=== PATIENT | female | born 1995 | race Asian ===

== ENCOUNTER 2017-03-28 14:02 | Emergency (ER) | payer OTHER ==
[2017-03-28 14:09] VITALS: BMI 24.7
--- NOTE | 2017-03-28 14:12 | PDOC ---
Rapid Medical Evaluation Chief Complaint: Vaginal Bleeding Time Seen by Provider: 03/28/17 14:09 Medical Evaluation: Allergies Allergy/AdvReac Type Severity Reaction Status Date / Time No Known Allergies Allergy Verified 03/28/17 14:06 Vital Signs Temp Pulse Resp BP Pulse Ox 98.8 F 83 18 106/63 99 03/28/17 14:07 03/28/17 14:07 03/28/17 14:07 03/28/17 14:07 03/28/17 14:07 03/28/17 14:24 The patient presents with a chief complaint of: Vaginal bleeding. Reports 17 weeks . Also endorses lower abdominal cramping. I have performed a brief in-person evaluation of this patient; Pertinent physical exam findings: Suprapubic tenderness I have ordered the following: CBC, CMP, PT/INR, Type and Screen, UA, Beta HCG, Transvaginal US The patient will proceed to the ED for further evaluation. Discharge Disposition - Referrals Referrals: Lorna Genao MD [Primary Care Provider] - - Patient Instructions - Post Discharge Activity
[2017-03-28 14:58] LABS: BASO % 0.2 % (0-2.0); EOS % 0.9 % (0-4.5); HEMATOCRIT 34.7 % (32.4-45.2); HEMOGLOBIN 11.5 GM/dL (10.7-15.3); LYMPH % 25.8 % (8-40); MCH 30.1 pg (25.7-33.7); MCHC 33.1 g/dl (32.0-36.0); MONO % 4.7 % (3.8-10.2); NEUT % 68.4 % (42.8-82.8); PLATELET COUNT 182 K/MM3 (134-434); RBC 3.81 M/mm3 (3.60-5.2); RDW 13.1 % (11.6-15.6); WHITE BLOOD COUNT 9.8 K/mm3 (4.0-10.0)
[2017-03-28 15:00] LABS: URINE APPEARANCE SLCLOUDY; URINE BILIRUBIN NEGATIVE (NEGATIVE); URINE BLOOD 3+ (NEGATIVE); URINE COLOR YELLOW; URINE GLUCOSE (UA) NEGATIVE (NEGATIVE); URINE KETONE NEGATIVE (NEGATIVE); URINE NITRITE NEGATIVE (NEGATIVE); URINE PROTEIN NEGATIVE (NEGATIVE); URINE UROBILINOGEN NEGATIVE mg/dL (0.2-1.0)
[2017-03-28 15:02] LABS: URINE LEUK ESTERASE 1+ (NEGATIVE)
[2017-03-28 15:23] LABS: EPI CELLS FEW /HPF (FEW); URINE MUCUS MODERATE
--- NOTE | 2017-03-28 15:24 | PDOC ---
History of Present Illness - General Chief Complaint: Vaginal Bleeding Stated Complaint: Vaginal Bleeding Time Seen by Provider: 03/28/17 14:09 - History of Present Illness Initial Comments: 03/28/17 16:22 Ms. Rendon is a 22 yo female currently 18 weeks w/ no pmh who presents for evaluation after noticing some blood in her underwear this morning. She reports that it was minimal but that she would like to get checked out. She also complains of a 1 day history of left lower quadrant stomach pain that has changed to include left CVA tenderness today. Per family member accompanying her she has had checkups recently with confirmation of IUP and no concerning findings to date. The patient denies chest pain, shortness of breath, headache and dizziness. Denies fever, chills, nausea, vomit, diarrhea and constipation. Denies dysuria, frequency, urgency and hematuria. Allergies: NKDA Past History - Past Medical History Allergies/Adverse Reactions: Allergies Allergy/AdvReac Type Severity Reaction Status Date / Time No Known Allergies Allergy Verified 03/28/17 14:06 COPD: No - Suicide/Smoking/Psychosocial Hx Smoking History: Never smoked Review of Systems - Review of Systems Comments:: 03/28/17 16:25 GENERAL/CONSTITUTIONAL: No fever or chills. No weakness. HEAD, EYES, EARS, NOSE AND THROAT: No change in vision. No ear pain or discharge. No sore throat. CARDIOVASCULAR: No chest pain or shortness of breath RESPIRATORY: No cough, wheezing, or hemoptysis. GASTROINTESTINAL: +LLQ pain with left lower back pain. No nausea, vomiting, diarrhea or constipation. GENITOURINARY: No dysuria, frequency, or change in urination. MUSCULOSKELETAL: No joint or muscle swelling or pain. No neck or back pain. SKIN: No rash NEUROLOGIC: No headache, vertigo, loss of consciousness, or change in strength/ sensation. ENDOCRINE: No increased thirst. No abnormal weight change HEMATOLOGIC/LYMPHATIC: No anemia, easy bleeding, or history of blood clots. ALLERGIC/IMMUNOLOGIC: No hives or skin allergy. : Minimal blood noted on underwear 1x earlier today. No current blood loss. *Physical Exam - Vital Signs Last Vital Signs Temp Pulse Resp BP Pulse Ox 98.8 F 83 18 106/63 99 03/28/17 14:07 03/28/17 14:07 03/28/17 14:07 03/28/17 14:07 03/28/17 14:07 - Physical Exam Comments: 03/28/17 16:25 GENERAL: Awake, alert, and fully oriented, in no acute distress HEAD: No signs of trauma, normocephalic, atraumatic EYES: PERRLA, EOMI, sclera anicteric, conjunctiva clear ENT: Auricles normal inspection, hearing grossly normal, nares patent, oropharynx clear without exudates. Moist mucosa NECK: Normal ROM, supple, no lymphadenopathy, JVD, or masses LUNGS: No distress, speaks full sentences, clear to auscultation bilaterally HEART: Regular rate and rhythm, normal S1 and S2, no murmurs, rubs or gallops, peripheral pulses normal and equal bilaterally. ABDOMEN: +LLQ pain with left CVA tenderness. Soft, normoactive bowel sounds. No guarding, no rebound. No masses EXTREMITIES: Normal inspection, Normal range of motion, no edema. No clubbing or cyanosis. NEUROLOGICAL: Cranial nerves II through XII grossly intact. Normal speech, normal gait, no focal sensorimotor deficits SKIN: Warm, Dry, normal turgor, no rashes or lesions noted. ED Treatment Course - LABORATORY CBC & Chemistry Diagram: 03/28/17 14:37 03/28/17 14:37 - ADDITIONAL ORDERS Additional order review: Laboratory Results 03/28/17 14:37 Urine Color Yellow Urine Appearance Slcloudy Urine pH 7.0 Ur Specific [place] 1.018 Urine Protein Negative Urine Glucose (UA) Negative Urine Ketones Negative Urine Blood 3+ H Urine Nitrite Negative Urine Bilirubin Negative Urine Urobilinogen Negative Ur Leukocyte Esterase 1+ H 03/28/17 14:37 RBC 3.81 MCV 91.0 MCHC 33.1 RDW 13.1 MPV 10.0 Neutrophils % 68.4 Lymphocytes % 25.8 Monocytes % 4.7 Eosinophils % 0.9 Basophils % 0.2 Medical Decision Making - Medical Decision Making 03/28/17 18:46 Ms. Rendon is a 22 yo female with no pmh who presents w/ LLQ pain, L CVA tenderness, and vaginal spotting as of this morning. Reported she was 18 weeks on presentation but was found to be 26 weeks by US. UA positive for UTI, discussed patient with Dr. Manning (covering for [facility] Lorna Genao). Dr. Bateman is aware of findings in ED of UTI with suspected pyelonephritis and will evaluate / treat patient as needed. Would like patient sent directly with no intervention. Will comply. *DC/Admit/Observation/Transfer Diagnosis at time of Disposition: UTI (urinary tract infection) Qualifiers: Urinary tract infection type: site unspecified Hematuria presence: with hematuria Qualified Code(s): N39.0 - Urinary tract infection, site not specified ; R31.9 - Hematuria, unspecified; R31.9 - Hematuria, unspecified - Discharge Dispostion Disposition: HOME - Referrals Referrals: Lorna Genao MD [Primary Care Provider] - - Patient Instructions Printed Discharge Instructions: DI for Urinary Tract Infection (UTI) Additional Instructions: Go directly to [facility] evaluation. You have a urinary tract infection with suspected kidney infection and require further evaluation. - Post Discharge Activity
[2017-03-28 15:26] LABS: ALBUMIN 2.7 g/dl (3.4-5.0); ANION GAP 10 (8-16); BILIRUBIN,TOTAL 0.4 mg/dL (0.2-1.0); BLOOD UREA NITROGEN 5 mg/dL (7-18); CALCIUM 8.2 mg/dL (8.5-10.1); CHLORIDE 109 mmol/L (98-107); CO2 20 mmol/L (21-32); CREATININE 0.4 mg/dL (0.55-1.02); GLUCOSE,RANDOM 86 mg/dL (74-106); POTASSIUM 3.8 mmol/L (3.5-5.1); SGOT/AST 8 U/L (15-37); SGPT/ALT 14 U/L (12-78); SODIUM 139 mmol/L (136-145); TOT PROT 6.3 g/dl (6.4-8.2)
[2017-03-28 15:42] LABS: ALK PHOS 134 U/L (45-117)
--- NOTE | 2017-03-28 18:20 | PDOC ---
Attending Attestation - Resident Resident Name: Ruiz Willett - ED Attending Attestation I have performed the following: I have examined & evaluated the patient, The case was reviewed & discussed with the resident, I agree w/resident's findings & plan, Exceptions are as noted - HPI HPI: 03/28/17 19:45 Patient is a 22 year old female, reports she is 17 weeks , , who presents to the ED with complaints of 1 episode vaginal spotting that occurred this morning. She reports another episode of spotting after her ultrasound in the ED. Patient reports experiencing intermittent left flank pain and left sided abdominal pain this afternoon, as well as urinary discomfort. Denies constipation. Denies chest pain, SOB. Denies fevers, chills. Denies contact with sick individuals, out of state traveling. Denies any other symptoms. Pt has seen her OB for this and has a f/u appt on 04/05/17 Allergies: None Social history: Lives with mother. No smoking. No alcohol. No illicit drugs. Surgical history: None OB: Dr. Lorna Genao. - Physicial Exam PE: 03/28/17 19:45 GENERAL: Awake, alert, and fully oriented, in no acute distress HEAD: No signs of trauma EYES: PERRLA, EOMI, sclera anicteric, conjunctiva clear ENT: Auricles normal inspection, hearing grossly normal, nares patent, oropharynx clear without exudates. Moist mucosa NECK: Normal ROM, supple, no lymphadenopathy, JVD, or masses LUNGS: Breath sounds equal, clear to auscultation bilaterally. No wheezes, and no crackles HEART: Regular rate and rhythm, normal S1 and S2, no murmurs, rubs or gallops ABDOMEN: Soft, nontender, normoactive bowel sounds. No guarding, no rebound. No masses. +L sided CVAT BUTCHER'S ASSISTANT: Gravid uterus, located 6cm above umbulicus. No blood in vaginal vault. Os closed. No midline or adnexal ttp EXTREMITIES: Normal range of motion, no edema. No clubbing or cyanosis. No cords, erythema, or tenderness NEUROLOGICAL: Normal speech, cranial nerves intact, negative pronator drift, 5/ 5 strength in all 4 extremities, normal sensation to light touch in all 4 extremities, normal cerebellar exam, normal gait, normal reflexes and tone SKIN: Warm, Dry, normal turgor, no rashes or lesions noted. - Medical Decision Making 03/28/17 18:18 22-year-old female currently 18 weeks resents with 2 episodes of vaginal spotting as well as left flank and left lower quadrant pain that are resolved. Patient also reports discomfort with urination. Vitals are unremarkable. Exam with no CVA tenderness, no abdominal tenderness. Presentation concerning for placenta previa versus cystitis versus threatened . WIll obtain labs, UA, and US and reassess 03/28/17 19:48 UA with possible UTI, given CVA tenderness the patient may have pyelonephritis. Ultrasound consistent with exam, with at [address] Oneida Genao, the patient's tour bus driver/guide however, was referred to Dr. De La Cruz who is a family practice physician in her office. I discussed the case with him , and he recommended that we consult with the obstetricians here. Dr. Carlos called up to labor and delivery where Dr. Manning is covering for Dr. Genao. Dr. Manning recommended that we send the patient up for monitoring and also for management of her pyelonephritis. All results explained to patient and her primary language of Hebrew. Patient has been sent up to labor and delivery for further management and disposition.
[2017-03-28] MEDS ORDERED: ceFAZolin SODIUM 1 GM VIAL ONE (19:43)
[2017-03-28] MEDS ORDERED: ceFAZolin 2 GRAM PREMIX BAG IVPB ONE (19:45)
[2017-03-28] MEDS ORDERED: DEXTROSE 5%-LACTATED RINGERS 1,000 ML IV SCH (19:45)
[2017-03-28 20:43] VITALS: BP 106/58; PULSE 67; TEMP 97.6
== END 2017-03-28 21:00 | disposition home or self-care (01) ==
LOC: JER 14:02
DX: O26.892 Other specified pregnancy related conditions, second trimester (principal); O23.32 Infections of other parts of urinary tract in pregnancy, second trimester; Z3A.26 26 weeks gestation of pregnancy
CPT/HCPCS: 36415; 76801-TC; 80053; 81003; 81015; 84702; 85025; 86850; 86900; 86901; 87086; 96374; 99282-25

== ENCOUNTER 2017-05-04 14:50 | Inpatient (IN) | payer OTHER ==
[2017-05-04] MEDS ORDERED: CITRIC ACID/SODIUM CITRATE 30 ML UNIT-DOSE CUP PO ONE (15:15)
[2017-05-04] MEDS ORDERED: ELECTROLYTE-148 SOLN 1,000 ML IV SCH (15:15)
[2017-05-04 15:20] VITALS: BMI 25.7
[2017-05-04 16:02] LABS: BASO % 0.1 % (0-2.0); HEMOGLOBIN 11.4 GM/dL (10.7-15.3); MONO % 5.2 % (3.8-10.2); RDW 12.7 % (11.6-15.6)
[2017-05-04 16:05] LABS: EOS % 0.6 % (0-4.5); HEMATOCRIT 33.6 % (32.4-45.2); LYMPH % 23.6 % (8-40); MCH 30.5 pg (25.7-33.7); MEAN CELL VOLUME 89.7 fl (80-96); MEAN PLT VOLUME 10.3 fl (7.5-11.1); NEUT % 70.5 % (42.8-82.8); PLATELET COUNT 203 K/MM3 (134-434); RBC 3.74 M/mm3 (3.60-5.2); WHITE BLOOD COUNT 9.2 K/mm3 (4.0-10.0)
[2017-05-04] MEDS ORDERED: OXYTOCIN 20 UNITS in 0.9% NS 20 UNIT/1,000 ML INFUS.BAG IV ONE ×2 (16:12→16:15)
[2017-05-04] MEDS ORDERED: morphine SULFATE/Preservative Free 0.5 MG/ML (1cc Syringe) ONE (16:17)
[2017-05-04 16:28] LABS: INR 1.01 (0.82-1.09); PROTHROMBIN TIME (PATIENT) 11.4 SEC (9.98-11.88)
[2017-05-04] MEDS ORDERED: PHENYLEPHRINE HCL 10 MG/1 ML SINGLE DOSE VIAL ONE (16:28)
[2017-05-04] MEDS ORDERED: ceFAZolin SODIUM 1 GM VIAL ONE (16:28)
[2017-05-04 16:31] LABS: ACTIVATED PTT 27.4 SECONDS (26.9-34.4)
--- NOTE | 2017-05-04 16:38 | HP ---
Past Medical History - Primary Care Physician PCP:: Trent Bustillo - Admission Chief Complaint: 34.5 weeks. rom, footling breech, labor History of Present Illness: 22 yo f edc by sono 06/10/17 with c/o of leaking fluid from vagina since 8 am today , with low abdominal pain and cramps, clear fluid, nitazine positive, fhr cat 1 , hx of iugr with oligo, cx 1 ft, footling breech. mr History Source: Patient Limitations to Obtaining History: Language Barrier - Past Medical History ...: 1 ...Para: 0 ...LMP: 09/03/16 ... Weeks Gestation by Dates: 34.5 ...EDC by Dates: 06/10/17 ...EDC by Sono: 06/10/17 - Past Surgical History Hx Myomectomy: No Hx Transabdominal Cerclage: No - Smoking History Smoking history: Never smoked - Alcohol/Substance Use Hx Alcohol Use: No - Social History History of Recent Travel: No Home Medications - Allergies Allergies/Adverse Reactions: Allergies Allergy/AdvReac Type Severity Reaction Status Date / Time No Known Allergies Allergy Verified 04/25/17 15:49 - Home Medications Home Medications: Ambulatory Orders Pnv No.95/Ferrous Fum/Folic AC [ Vitamin Tablet] 1 each PO DAILY Review of Systems - Review of Systems Constitutional: reports: No Symptoms Eyes: reports: No Symptoms HENT: reports: No Symptoms Neck: reports: No Symptoms Cardiovascular: reports: No Symptoms Respiratory: reports: No Symptoms Gastrointestinal: reports: No Symptoms Genitourinary: reports: No Symptoms Breasts: reports: No Symptoms Reported Musculoskeletal: reports: No Symptoms Integumentary: reports: No Symptoms Neurological: reports: No Symptoms Endocrine: reports: No Symptoms Hematology/Lymphatic: reports: No Symptoms Physical Exam - Maternity Vital Signs: Vital Signs Temperature 97.7 F 05/04/17 15:11 Pulse Rate 86 05/04/17 15:11 Respiratory Rate 20 05/04/17 15:11 Blood Pressure 124/76 05/04/17 15:11 O2 Sat by Pulse Oximetry (%) Constitutional: Yes: Well Nourished, No Distress, Calm Eyes: Yes: WNL, Conjunctiva Clear, EOM Intact HENT: Yes: WNL, Atraumatic, Normocephalic Neck: Yes: WNL, Supple, Trachea Midline Cardiovascular: Yes: WNL, Regular Rate and Rhythm Breast(s): Yes: WNL - Abdominal Exam/OB Number of Fetuses: Single Presentation: Breech Contractions: Yes Regularity: Irregular Intensity: Moderate Monitor Mode: External Heart Rate Location: [facility] [[email or web address]] Category: I Accelerations: Uniform Decelerations: None - Vaginal Exam/OB Vaginal Bleediing: No Speculum Exam: Yes Dilatation (cm): 1 cm Effacement (%): 70 Amniotic Membrane Status: Ruptured Nitrazine Test: Positive Amniotic Fluid: Yes: Clear Station: -3 - Physical Exam Musculoskeletal: Yes: WNL Extremities: Yes: WNL Edema: Yes Edema: LLE: Trace, RLE: Trace Deep Tendon Reflex Grade: Normal +2 ...Motor Strength: WNL Psychiatric: Yes: WNL - Labs Lab Results: CBC, BMP 05/04/17 15:30 Problem List - Problems (1) 34 weeks gestation of Code(s): Z3A.34 - 34 WEEKS GESTATION OF (2) membrane rupture Code(s): WOI0533 - (3) Breech presentation with problem Code(s): O32.1XX0 - MATERNAL CARE FOR BREECH PRESENTATION, UNSP Qualifiers: Fetus number: single or unspecified fetus Qualified Code(s): O32.1XX0 - Maternal care for breech presentation, not applicable or unspecified Assessment/Plan admit for c/s , rba explained
[2017-05-04 16:53] LABS: ANION GAP 11 (8-16); BLOOD UREA NITROGEN 5 mg/dL (7-18); CALCIUM 7.7 mg/dL (8.5-10.1); CHLORIDE 107 mmol/L (98-107); CO2 19 mmol/L (21-32); GLUCOSE,RANDOM 72 mg/dL (74-106); SODIUM 137 mmol/L (136-145)
[2017-05-04 16:54] LABS: CREATININE 0.3 mg/dL (0.55-1.02)
[2017-05-04] MEDS ORDERED: KETOROLAC TROMETHAMINE 30 MG/1 ML VIAL ONE (17:03)
[2017-05-04] MEDS ORDERED: ACETAMINOPHEN 325 MG TABLET (FP) PO PRN (17:16)
[2017-05-04] MEDS ORDERED: ONDANSETRON 4 MG/2 ML VIAL IVPUSH PRN (17:16)
[2017-05-04] MEDS ORDERED: BENZOCAINE 28 GM HEMORRHOIDAL OINTMENT PR PRN (17:22)
[2017-05-04] MEDS ORDERED: WITCH HAZEL 50% (TUCKS) 40 PAD/JAR PAD TP PRN (17:22)
[2017-05-04] MEDS ORDERED: diphenhydrAMINE HCL 25 MG CAPSULE (FP) PO PRN (17:22)
[2017-05-04] MEDS ORDERED: METHYLERGONOVINE MALEATE 0.2 MG/1 ML AMP IM PRN (17:22)
[2017-05-04] MEDS ORDERED: IBUPROFEN 800 MG/8 ML IJ IVPB PRN (17:22)
[2017-05-04] MEDS ORDERED: IBUPROFEN 600 MG TABLET (FP) PO PRN (17:22)
[2017-05-04] MEDS ORDERED: BENZOCAINE 20% 57 GM BOTTLE TP PRN (17:22)
[2017-05-04] MEDS ORDERED: OXYTOCIN 20 UNITS in 0.9% NS 20 UNIT/1,000 ML INFUS.BAG IV SCH (17:30)
[2017-05-04] MEDS ORDERED: DEXTROSE 5%-LACTATED RINGERS 1,000 ML IV SCH (17:30)
[2017-05-04 17:44] LABS: VENOUS PC02 49.9 mmHg (38-52); VENOUS PH 7.32 (7.32-7.42)
[2017-05-04 17:48] LABS: ARTERIAL BLOOD GAS BASE EXCESS -1.6 meq/l (-2-2); ARTERIAL BLOOD GAS PCO2 38.9 mmHg (35-45); ARTERIAL BLOOD GAS pH 7.38 (7.35-7.45)
[2017-05-04 17:51] LABS: ARTERIAL BLD GAS O2 SATURATION 50.4 % (90-98.9); ARTERIAL BLOOD GAS PO2 22.2 mmHg (80-100)
[2017-05-04 17:52] LABS: VENOUS PO2 15.1 mmHg (28-48)
[2017-05-04] MEDS ORDERED: CEFAZOLIN 1 GM PUSH 1 GM/10 ML DISP.SYRIN IVPUSH SCH (18:00)
[2017-05-04] MEDS ORDERED: BUPIVACAINE HCL/PF 0.5% (5MG/ML) 10 ML VIAL ONE (19:21)
[2017-05-05] MEDS: CEFAZOLIN 1 GM PUSH 1 GM/10 ML DISP.SYRIN IVPUSH SCH ×2 (01:47→09:44)
--- NOTE | 2017-05-05 07:47 | PN ---
Progress Note (short form) - Note Progress Note: pod 1 doing well, no c/o , CBC, BMP 05/04/17 15:30 Last Vital Signs Temp Pulse Resp BP Pulse Ox 98.2 F 87 18 112/52 05/05/17 06:00 05/05/17 06:00 05/05/17 06:00 05/05/17 06:00 abdomen soft, no distension, no cva , incision dry, clean no calf tenderness no excess vaginal bleeding pod 1 afebrile plan ambulate , advance diet Problem List - Problems (1) 34 weeks gestation of Code(s): Z3A.34 - 34 WEEKS GESTATION OF (2) membrane rupture Code(s): VSP1473 - (3) Breech presentation with problem Code(s): O32.1XX0 - MATERNAL CARE FOR BREECH PRESENTATION, UNSP Qualifiers: Fetus number: single or unspecified fetus Qualified Code(s): O32.1XX0 - Maternal care for breech presentation, not applicable or unspecified
[2017-05-05 07:50] LABS: BASO % 0.1 % (0-2.0); EOS % 0.4 % (0-4.5); HEMATOCRIT 31.6 % (32.4-45.2); HEMOGLOBIN 10.5 GM/dL (10.7-15.3); LYMPH % 20.9 % (8-40); MCH 29.8 pg (25.7-33.7); MCHC 33.1 g/dl (32.0-36.0); MEAN CELL VOLUME 90.1 fl (80-96); MEAN PLT VOLUME 10.1 fl (7.5-11.1); NEUT % 73.6 % (42.8-82.8); PLATELET COUNT 168 K/MM3 (134-434); RBC 3.51 M/mm3 (3.60-5.2); RDW 12.9 % (11.6-15.6); WHITE BLOOD COUNT 12.3 K/mm3 (4.0-10.0)
[2017-05-05] MEDS: ENOXAPARIN NA (PORCINE) 40 MG/0.4 ML DISP.SYRIN SQ SCH (09:43)
--- NOTE | 2017-05-05 09:46 | OP ---
DATE OF OPERATION: 05/04/2017 PREOPERATIVE DIAGNOSIS: , 34.5 weeks gestation, ruptured membrane, footling breech, early labor. POSTOPERATIVE DIAGNOSIS: , 34.5 weeks gestation, ruptured membrane, footling breech, early labor. PROCEDURE: Primary low segment transverse section. SURGEON: Gab Bustillo MD SUPERVISOR MATTRESS AND BOXSPRINGS: RODERICK Frey ANESTHESIA: Spinal. ANESTHESIOLOGIST: ESTIMATED BLOOD LOSS: 500 mL. FINDINGS: A live baby boy, double footling breech, 9 and 9. OPERATION: The patient was taken to the operating room. Under adequate spinal anesthesia, abdomen and perineum were prepped and draped. Pfannenstiel abdominal skin incision was made. Abdominal wall was cut layer by layer until the peritoneum was exposed and incised. Upon entering the abdominal cavity, lower uterine segment was identified, and uterovesical fold of peritoneum was established, bladder was pushed down. Then, with the lower blade of the Joslyn retractor in the pelvis, a low transverse uterine incision was made. Incision extended laterally with the bandaged scissors. Amniotic sac was entered. Minimal clear fluid was seen. Baby was in double footling breech, was delivered via breech without any difficulty. Placenta was delivered manually. Uterine cavity was cleaned of all remaining tissue. Uterine incision was closed using 2 layers, 1st layer with 0 Biosyn continuous suture, the 2nd layer with 0 Biosyn imbricating the 1st layer. Bladder flap was closed with 0 Biosyn continuous suture. Both tubes and ovaries were checked, were normal. No active bleeding was seen. All the lap pad, sponge, and instrument counts were correct. Then, peritoneum was closed with 0 Biosyn continuous suture, muscles were brought together with interrupted sutures of 0 Biosyn, fascia was closed with 0 Biosyn continuous suture, subcutaneous fat with interrupted suture of 0 Biosyn, and the skin was closed with merrill. The patient tolerated the procedure well, left the OR in good condition. GAB BUSTILLO M.D. [id number]
[2017-05-05] MEDS: oxyCODONE HCL 5 MG TABLET PO PRN ×2 (11:21→19:43)
[2017-05-05] MEDS: IBUPROFEN 600 MG TABLET (FP) PO PRN ×2 (11:22→19:43)
[2017-05-05] MEDS: SIMETHICONE 80 MG TAB.CHEW (FP) PO PRN ×2 (11:23→19:43)
--- NOTE | 2017-05-05 15:34 | PN ---
Progress Note (short form) - Note Progress Note: Anesthesia/Pain Pt seen and examined S:Alert and awake comfortable O: Vital Signs Temperature 98.4 F 05/05/17 14:00 Pulse Rate 77 05/05/17 14:00 Respiratory Rate 20 05/05/17 14:00 Blood Pressure 95/59 05/05/17 14:00 O2 Sat by Pulse Oximetry (%) CBC, BMP 05/05/17 06:12 05/04/17 15:30 A/P: Current Active Problems 34 weeks gestation of (Acute) Breech presentation with problem (Acute) membrane rupture (Acute) IUGR (intrauterine growth restriction) (Acute) s/p c section Doing well post op Continue current care Sky Galan MD
[2017-05-05] MEDS ORDERED: BISACODYL 10 MG SUPP.RECT RC PRN (17:22)
[2017-05-06] MEDS: oxyCODONE HCL 5 MG TABLET PO PRN ×4 (03:52→17:57)
[2017-05-06] MEDS: IBUPROFEN 600 MG TABLET (FP) PO PRN ×4 (03:52→17:58)
[2017-05-06] MEDS: SIMETHICONE 80 MG TAB.CHEW (FP) PO PRN ×4 (03:52→17:59)
[2017-05-06 06:08] LABS: HBsAG SCREEN Negative (Negative)
--- NOTE | 2017-05-06 07:30 | PN ---
Post Progress Note - Subjective Subjective: 22 yo Para 1 status post primary , seen and evaluated. She c/o incision pain. Post Day: 2 Type of Delivery: Primary C/S Vital Signs: Vital Signs Temperature 98.7 F 05/05/17 21:00 Pulse Rate 96 H 05/05/17 21:00 Respiratory Rate 20 05/05/17 21:00 Blood Pressure 122/74 05/05/17 21:00 O2 Sat by Pulse Oximetry (%) Breast Exam: Yes: Soft Uterus: Yes: Fundus Firm Incision: Yes: Dressing dry and intact Abdomen/GI: Yes: Abdomen soft, Tolerating PO Lochia: Yes: Rubra Lochia, amount: Small Extremities: Yes: Calves non-tender Perineum: Yes: Intact Activity: Ambulating - Labs Labs: CBC WBC 12.3 K/mm3 (4.0-10.0) H D 05/05/17 06:12 RBC 3.51 M/mm3 (3.60-5.2) L 05/05/17 06:12 Hgb 10.5 GM/dL (10.7-15.3) L 05/05/17 06:12 Hct 31.6 % (32.4-45.2) L 05/05/17 06:12 MCV 90.1 fl (80-96) 05/05/17 06:12 MCH 29.8 pg (25.7-33.7) 05/05/17 06:12 MCHC 33.1 g/dl (32.0-36.0) 05/05/17 06:12 RDW 12.9 % (11.6-15.6) 05/05/17 06:12 Plt Count 168 K/MM3 (134-434) 05/05/17 06:12 MPV 10.1 fl (7.5-11.1) 05/05/17 06:12 Neutrophils % 73.6 % (42.8-82.8) 05/05/17 06:12 Lymphocytes % 20.9 % (8-40) 05/05/17 06:12 Monocytes % 5.0 % (3.8-10.2) 05/05/17 06:12 Eosinophils % 0.4 % (0-4.5) 05/05/17 06:12 Basophils % 0.1 % (0-2.0) 05/05/17 06:12 Problem List - Problems (1) Status post primary low transverse section Code(s): Z98.891 - HISTORY OF UTERINE SCAR FROM PREVIOUS SURGERY Assessment/Plan Status post primary Ambulation Analgesia as needed Continue routine post op care
[2017-05-06] MEDS ORDERED: DIPHTH,PERTUSS(ACELL),TET 0.5 ML DISP.SYRIN IM ONE (10:00)
[2017-05-06] MEDS: ENOXAPARIN NA (PORCINE) 40 MG/0.4 ML DISP.SYRIN SQ SCH (10:36)
[2017-05-06] MEDS ORDERED: SENNOSIDES/DOCUSATE COMBO (SENNA PLUS) TABLET (UD) PO PRN (22:00)
[2017-05-07] MEDS: IBUPROFEN 600 MG TABLET (FP) PO PRN ×4 (00:02→15:17)
[2017-05-07] MEDS: oxyCODONE HCL 5 MG TABLET PO PRN ×2 (06:37→09:52)
[2017-05-07 08:51] VITALS: BP 127/76; PULSE 80; TEMP 98.7
[2017-05-07 09:04] LABS: BASO % 0.1 % (0-2.0); HEMATOCRIT 30.5 % (32.4-45.2); HEMOGLOBIN 10.2 GM/dL (10.7-15.3); LYMPH % 26.1 % (8-40); MCHC 33.3 g/dl (32.0-36.0); MEAN CELL VOLUME 89.9 fl (80-96); MEAN PLT VOLUME 10.2 fl (7.5-11.1); MONO % 5.7 % (3.8-10.2); NEUT % 66.1 % (42.8-82.8); PLATELET COUNT 170 K/MM3 (134-434); RBC 3.39 M/mm3 (3.60-5.2); RDW 13.1 % (11.6-15.6); WHITE BLOOD COUNT 8.8 K/mm3 (4.0-10.0)
--- NOTE | 2017-05-07 09:18 | DS ---
Physical Exam-STORE TEAM LEADER Vital Signs: Vital Signs Temperature 98.7 F 05/07/17 08:49 Pulse Rate 80 05/07/17 08:49 Respiratory Rate 20 05/07/17 08:49 Blood Pressure 127/76 05/07/17 08:49 O2 Sat by Pulse Oximetry (%) Constitutional: Yes: Well Nourished Eyes: Yes: Conjunctiva Clear HENT: Yes: Atraumatic Neck: Yes: Supple Cardiovascular: Yes: Regular Rate and Rhythm Respiratory: Yes: Regular Gastrointestinal: Yes: Normal Bowel Sounds External Genitalia: Yes: Normal Cervix: Yes: Normal Uterus: Yes: Firm Breast(s): Yes: WNL Musculoskeletal: Yes: WNL Extremities: Yes: WNL Wound/Incision: Yes: Well Approximated ...Motor Strength: WNL Psychiatric: Yes: Alert, Oriented Labs: CBC, BMP 05/07/17 07:30 05/04/17 15:30 Delivery - Delivery Type of Anesthesia: Spinal Episiotomy/Laceration: None EBL (cc): 500 Delivery, Single - Stages of Labor Date of Delivery: 05/04/17 Time of Delivery: 16:56 Time Placenta Delivered: 16:58 - Condition of Medical Claims Analyst/Cashier Self Service Gasoline Present: Yes Name: Rupali Healy Gender: Male Weight: 4 lb 7 oz Total Hours ROM (Hrs/Mins): 8h 56min - 1 Minute Total Score: 9 5 Minutes Total Score: 9 - Feeding Plan Initial Plan: Elected not to breastfeed exclusively throughout hospitalization Discharge Summary Reason For Visit: Current Active Problems 34 weeks gestation of (Acute) Breech presentation with problem (Acute) membrane rupture (Acute) IUGR (intrauterine growth restriction) (Acute) Status post primary low transverse section (Acute) Procedures: Principal: Primary Low Transverse Hospital Course: Routine Post op care Condition: Good - Instructions Diet, Activity, Other Instructions: Regular diet No driving, no lifting x 2 weeks Disposition: HOME - Home Medications Comprehensive Discharge Medication List: Ambulatory Orders Pnv No.95/Ferrous Fum/Folic AC [ Vitamin Tablet] 1 each PO DAILY
[2017-05-07] MEDS: ENOXAPARIN NA (PORCINE) 40 MG/0.4 ML DISP.SYRIN SQ SCH (09:47)
[2017-05-07] MEDS: SIMETHICONE 80 MG TAB.CHEW (FP) PO PRN (09:52)
--- NOTE | 2017-05-12 16:12 | PATH ---
Surgical Pathology Report Patient Name: DANUTA JONES Med. Rec. #: [id number] /Age/Gender: 1995 (Age: 22) / F Account: [id number] Location: [facility] OBS/FREIGHT AGENT Taken: 05/04/2017 Received: 05/05/2017 Reported: 05/12/2017 Physicians: Trent Bustillo M.D. Specimen(s) Received PLACENTA Clinical History -breech, 34.5 gestational weeks Final Diagnosis PLACENTA, SECTION: 361 g THIRD TRIMESTER PLACENTA WITH TRIVASCULAR UMBILICAL CORD AND UNREMARKABLE PLACENTAL MEMBRANES. Electronically Signed Mandie Iniguez M.D. Gross Description The specimen is received fresh labeled placenta and is a 361 gram, 15.0 x 12.8 x 2.3 cm. placenta with attached membranes and umbilical cord. The attached membranes are valera, translucent with focal opacities and insert marginally. The umbilical cord measures 9 cm. in length and averages 1.1 cm. in diameter. The cord inserts eccentrically, 3.5 cm. to the nearest margin. No true knots or strictures are identified. Cut surface of the umbilical cord reveals 3 vessels. The surface is nguyen-blue with minimal fibrin deposition and appropriate caliber vessels. The maternal surface is red-brown and intact. Sectioning reveals red-brown, spongy parenchyma. No lesions are identified. Senior Merchandiser sections are submitted in three cassettes as follows: 1- membrane rolls and umbilical cord; 2-3- full thickness sections of placenta. 05/10/201705/10/2017
== END 2017-05-07 16:10 | disposition home or self-care (01) | DRG 540 ==
LOC: JLDR 14:50 → J3W 19:58
PROVIDERS: ADMIT Obstetrics & Gynecology; ATTEND Obstetrics & Gynecology
PROC: 10D00Z1 Extraction of Products of Conception, Low, Open Approach (ICD-10-PCS; principal; 2017-05-04)
DX: O32.8XX0 Maternal care for other malpresentation of fetus, not applicable or unspecified (principal); O36.5930 Maternal care for other known or suspected poor fetal growth, third trimester, not applicable or unspecified; Z3A.34 34 weeks gestation of pregnancy; Z37.0 Single live birth
CPT/HCPCS: 36415; 36600; 80048; 82803; 85025; 85610; 85730; 86593; 86850; 86900; 86901; 87340; 88307-TC; 90715

== ENCOUNTER 2019-04-09 07:32 | Emergency (ER) | payer OTHER ==
[2019-04-09 07:46] VITALS: BP 98/57; PULSE 87; TEMP 97.7; BMI 24.0
--- NOTE | 2019-04-09 08:44 | PDOC ---
History of Present Illness - General Chief Complaint: Pain, Acute Stated Complaint: GENERALIZED PAIN/ Time Seen by Provider: 04/09/19 07:52 History Source: Patient Exam Limitations: No Limitations - History of Present Illness Initial Comments: 04/09/19 08:41 24-year-old female presents to the ED with complaints of epigastric pain which she describes as a sharp sensation with intermittent radiation to her left upper quadrant, back and now even to the right leg. Patient states symptoms have been for approximately 1 month and occurred during the day lasting for approximately a minute. Patient also recently was told she was and her LMP was 03/24/2019 patient has no other complaints at this time. Patient is to follow-up with her Manufacturing Engineering Technologist Dr. Oneida Genao next week. Is this a multiple visit Asthma Patient?: No Timing/Duration: other Severity: mild Associated Symptoms: reports: other Past History - Travel Traveled outside of the country in the last 30 days: No Close contact w/someone who was outside of country & ill: No - Past Medical History Allergies/Adverse Reactions: Allergies Allergy/AdvReac Type Severity Reaction Status Date / Time No Known Allergies Allergy Verified 04/25/17 15:49 Home Medications: Ambulatory Orders Pnv No.95/Ferrous Fum/Folic AC [ Vitamin Tablet] 1 each PO DAILY Famotidine [Pepcid] 20 mg PO DAILY #30 tablet 04/09/19 Asthma: No Cancer: No Cardiac Disorders: No COPD: No Diabetes: No HTN: No Seizures: No Thyroid Disease: No - Reproductive History (#): 1 - Psycho Social/Smoking Cessation Hx Smoking History: Never smoked Have you smoked in the past 12 months: No Information on smoking cessation initiated: No Hx Alcohol Use: No Drug/Substance Use Hx: No Hx Substance Use Treatment: No Patient Lives Alone: No Lives with/in: spouse/SO Review of Systems - Review of Systems Able to Perform ROS?: Yes Constitutional: No: Symptoms Reported HEENTM: No: Symptoms Reported Respiratory: No: Symptoms reported Cardiac (ROS): No: Chest Pain ABD/GI: Yes: Indigestion. No: Constipated, Diarrhea, Nausea, Poor Fluid Intake , Vomiting, Abdominal cramping : No: Symptoms Reported Musculoskeletal: No: Symptoms Reported Integumentary: No: Symptoms Reported Neurological: No: Symptoms reported Endocrine: No: Symptoms Reported Hematologic/Lymphatic: No: Symptoms Reported *Physical Exam - Vital Signs Last Vital Signs Temp Pulse Resp BP Pulse Ox 97.7 F 87 18 98/57 L 96 04/09/19 07:37 04/09/19 07:37 04/09/19 07:37 04/09/19 07:37 04/09/19 07:37 - Physical Exam General Appearance: Yes: Nourished, Appropriately Dressed. No: Apparent Distress HEENT: positive: EOMI. negative: Pale Conjunctivae Neck: positive: Normal Thyroid Respiratory/Chest: positive: Lungs Clear, Normal Breath Sounds. negative: Chest Tender, Respiratory Distress, Accessory Muscle Use Cardiovascular: positive: Regular Rhythm, Regular Rate. negative: Murmur Gastrointestinal/Abdominal: positive: Normal Bowel Sounds, Soft, Tenderness ( Mild epigastric Tenderness. negative right upper quadrant left upper quadrant or lower abdominal region). negative: Distended Musculoskeletal: negative: CVA Tenderness Integumentary: positive: Normal Color, Warm, Moist Neurologic: positive: Motor Strength 5/5 (Ambulatory) Heart Score/ECG Review - ECG Intrepretation Rhythm: Regular Rhythm (rate 63. Normal sinus rhythm) Medical Decision Making - Medical Decision Making 04/09/19 08:06 Chief complaint: Epigastric sharp pain intermittently for the past month rating to left upper quadrant back radiating to left upper quadrant and back. Patient states symptoms lasted approximately a minute and normally occurred during the day worse in the evening hours. Patient states eats spicy food daily and uses hot sauce daily patient also approximately 5 weeks based on LMP and is due to see the bpm analyst next week Exam: Patient with normal vital signs EKG normal sinus rhythm. Mild epigastric tenderness noted Plan: EKG and urine discharged home with Pepcid along with GI referral and diet modification recommendations 04/09/19 09:51 Laboratory Tests 04/09/19 08:30 Ur Specific [place] 1.037 H Urine Ketones Trace H Urine Bilirubin Negative Discharge - Discharge Information Problems reviewed: Yes Clinical Impression/Diagnosis: Pain Condition: Good Disposition: HOME - Additional Discharge Information Prescriptions: Famotidine [Pepcid] 20 mg PO DAILY #30 tablet - Follow up/Referral Referrals: Lorna Genao CNM [Primary Care Provider] - Juan Flores MD [Staff Physician] - Shay Jenkins MD [Staff Physician] - - Patient Discharge Instructions Patient Printed Discharge Instructions: DI for Gastroesophageal Reflux Disease (GERD) Additional Instructions: Please take Pepcid daily as prescribed. Avoid spicy food as this will aggravate your symptoms. You may also start taking vitamins. follow-up with referred garment fitter. - Post Discharge Activity
[2019-04-09 09:39] LABS: URINE APPEARANCE CLOUDY; URINE BILIRUBIN NEGATIVE (NEGATIVE); URINE COLOR DK YELLOW; URINE GLUCOSE (UA) NEGATIVE (NEGATIVE); URINE KETONE TRACE (NEGATIVE); URINE LEUK ESTERASE NEGATIVE (NEGATIVE); URINE NITRITE NEGATIVE (NEGATIVE); URINE PROTEIN NEGATIVE (NEGATIVE)
--- NOTE | 2019-04-12 14:12 | EKG ---
Test Reason : Blood Pressure : / mmHG Vent. Rate : 063 BPM Atrial Rate : 063 BPM P-R Int : 166 ms QRS Dur : 090 ms QT Int : 414 ms P-R-T Axes : 078 074 044 degrees QTc Int : 423 ms NORMAL SINUS RHYTHM NORMAL ECG NO PREVIOUS ECGS AVAILABLE Confirmed by ARSLAN GILLETTE MD ([id number]) on 04/12/2019 2:12:26 PM Referred By: Confirmed By:ARSLAN GILLETTE MD
== END 2019-04-09 10:16 | disposition home or self-care (01) ==
LOC: JER 07:32
DX: O26.891 Other specified pregnancy related conditions, first trimester (principal); R10.13 Epigastric pain; Z3A.01 Less than 8 weeks gestation of pregnancy
CPT/HCPCS: 81003; 87086; 93005; 93010; 99281-25

== ENCOUNTER 2020-12-03 07:00 | Inpatient (IN) | payer OTHER ==
[2020-12-03] MEDS ORDERED: CITRIC ACID/SODIUM CITRATE 30 ML UNIT-DOSE CUP PO ONE (08:16)
[2020-12-03] MEDS ORDERED: METHYLERGONOVINE MALEATE 0.2 MG/1 ML AMP IM PRN (08:17)
[2020-12-03] MEDS ORDERED: ELECTROLYTE-148 SOLN 1,000 ML IV SCH (08:30)
[2020-12-03 08:58] LABS: BASO % 0.2 % (0-2.0); HEMOGLOBIN 11.2 GM/dL (10.7-15.3); LYMPH % 35.4 % (8-40); MCH 29.2 pg (25.7-33.7); MCHC 33.9 g/dl (32.0-36.0); MEAN CELL VOLUME 86.3 fl (80-96); MEAN PLT VOLUME 10.8 fl (7.5-11.1); MONO % 5.4 % (3.8-10.2); PLATELET COUNT 222 10^3/uL (134-434); RBC 3.83 M/mm3 (3.60-5.2); RDW 14.4 % (11.6-15.6); WHITE BLOOD COUNT 9.7 K/mm3 (4.0-10.0)
[2020-12-03 09:04] VITALS: BMI 32.0
[2020-12-03 09:08] LABS: ACTIVATED PTT 26.7 SECONDS (25.2-36.5)
[2020-12-03 09:13] LABS: CALCIUM 8.5 mg/dL (8.5-10.1)
[2020-12-03 09:14] LABS: BLOOD UREA NITROGEN 14.2 mg/dL (7-18)
[2020-12-03 09:16] LABS: CREATININE 0.6 mg/dL (0.55-1.3)
[2020-12-03 09:41] LABS: PROTHROMBIN TIME (PATIENT) 10.8 SEC (9.7-13.0)
[2020-12-03 09:42] LABS: INR 0.88 (0.83-1.09)
[2020-12-03] MEDS ORDERED: ONDANSETRON 4 MG/2 ML VIAL IVPUSH PRN (11:17)
[2020-12-03] MEDS ORDERED: morphine SULFATE/PF 1 MG/2 ML (2cc Syringe - QUVA) EP ONE (11:17)
[2020-12-03] MEDS ORDERED: morphine SULFATE/Preservative Free 0.5 MG/ML (1cc Syringe) ONE (11:20)
[2020-12-03] MEDS ORDERED: OXYTOCIN 20 UNITS in 0.9% NS 20 UNIT/1,000 ML INFUS.BAG IV ONE ×2 (11:22→13:05)
[2020-12-03] MEDS ORDERED: ePHEDrine SULFATE 50 MG/1 ML AMPULE ONE (11:24)
[2020-12-03] MEDS ORDERED: ceFAZolin SODIUM 1 GM VIAL ONE (11:40)
[2020-12-03] MEDS ORDERED: BUPIVACAINE 0.75% IN DEXTROSE/PF 2ML AMPULE NR ONE (11:51)
[2020-12-03] MEDS: OXYTOCIN 20 UNITS in 0.9% NS 20 UNIT/1,000 ML INFUS.BAG IV SCH (12:00)
[2020-12-03 12:25] LABS: CORD HCO3 23.9 mmHg (20-29); CORD PCO2 44.8 mmHg (30-78); CORD pH 7.345 (7.14-7.44)
[2020-12-03 12:28] LABS: CORD HCO3 21.9 mmHg (20-29); CORD PCO2 47.9 mmHg (30-78); CORD pH 7.278 (7.14-7.44)
[2020-12-03] MEDS ORDERED: ONDANSETRON 4 MG/2 ML VIAL ONE (13:14)
[2020-12-03] MEDS: IBUPROFEN 600 MG TABLET (FP) PO PRN (18:15)
[2020-12-03] MEDS: SIMETHICONE 80 MG TAB.CHEW (FP) PO PRN (18:15)
[2020-12-04] MEDS: IBUPROFEN 600 MG TABLET (FP) PO PRN ×2 (02:04→19:45)
[2020-12-04] MEDS: SIMETHICONE 80 MG TAB.CHEW (FP) PO PRN ×3 (02:04→19:42)
[2020-12-04] MEDS ORDERED: BISACODYL 10 MG SUPP.RECT RC PRN (08:17)
[2020-12-04] MEDS ORDERED: oxyCODONE HCL 5 MG TABLET PO PRN (08:17)
[2020-12-04 11:49] LABS: BASO % 0.1 % (0-2.0); EOS % 0.5 % (0-4.5); HEMATOCRIT 28.5 % (32.4-45.2); HEMOGLOBIN 9.8 GM/dL (10.7-15.3); LYMPH % 25.2 % (8-40); MCH 29.7 pg (25.7-33.7); MCHC 34.3 g/dl (32.0-36.0); MEAN CELL VOLUME 86.6 fl (80-96); MEAN PLT VOLUME 10.6 fl (7.5-11.1); NEUT % 71.2 % (42.8-82.8); PLATELET COUNT 198 10^3/uL (134-434); RBC 3.29 M/mm3 (3.60-5.2); RDW 14.2 % (11.6-15.6); WHITE BLOOD COUNT 10.8 K/mm3 (4.0-10.0)
[2020-12-04] MEDS: oxyCODONE HCL 5 MG TABLET PO PRN ×3 (11:51→19:43)
[2020-12-04] MEDS: OXYTOCIN 20 UNITS in 0.9% NS 20 UNIT/1,000 ML INFUS.BAG IV SCH (21:26)
[2020-12-05] MEDS: SIMETHICONE 80 MG TAB.CHEW (FP) PO PRN ×5 (01:27→19:10)
[2020-12-05] MEDS: oxyCODONE HCL 5 MG TABLET PO PRN ×3 (01:27→22:32)
[2020-12-05] MEDS: IBUPROFEN 600 MG TABLET (FP) PO PRN ×4 (01:29→19:10)
[2020-12-06] MEDS: SIMETHICONE 80 MG TAB.CHEW (FP) PO PRN ×2 (05:53→11:34)
[2020-12-06] MEDS: IBUPROFEN 600 MG TABLET (FP) PO PRN ×2 (05:54→11:34)
[2020-12-06 07:44] LABS: BASO % 0.3 % (0-2.0); EOS % 1.6 % (0-4.5); HEMATOCRIT 25.6 % (32.4-45.2); HEMOGLOBIN 8.8 GM/dL (10.7-15.3); LYMPH % 40.7 % (8-40); MCH 29.6 pg (25.7-33.7); MCHC 34.5 g/dl (32.0-36.0); MEAN CELL VOLUME 85.9 fl (80-96); MEAN PLT VOLUME 9.8 fl (7.5-11.1); MONO % 4.9 % (3.8-10.2); NEUT % 52.5 % (42.8-82.8); PLATELET COUNT 199 10^3/uL (134-434); RBC 2.98 M/mm3 (3.60-5.2); RDW 14.5 % (11.6-15.6)
[2020-12-06 13:59] VITALS: BP 105/72; PULSE 66; TEMP 98.2
== END 2020-12-06 12:20 | disposition home or self-care (01) | DRG 540 ==
LOC: JLDR 07:00 → J3W 14:35
PROVIDERS: ADMIT Obstetrics & Gynecology; ATTEND Obstetrics & Gynecology
PROC: 10D00Z1 Extraction of Products of Conception, Low, Open Approach (ICD-10-PCS; principal; 2020-12-03)
DX: O34.219 Maternal care for unspecified type scar from previous cesarean delivery (principal); O99.214 Obesity complicating childbirth; O99.824 Streptococcus B carrier state complicating childbirth; Z3A.39 39 weeks gestation of pregnancy; Z37.0 Single live birth
CPT/HCPCS: 36415; 36600; 80048; 82803; 85025; 85610; 85730; 86780; 86850; 86900; 86901; 88307-TC; C9803; U0003; U0005

== ENCOUNTER 2021-03-15 21:01 | Emergency (ER) | payer OTHER ==
[2021-03-15 21:32] VITALS: BP 110/71; PULSE 105; TEMP 102.2; BMI 26.5
[2021-03-15] MEDS ORDERED: ACETAMINOPHEN 500 MG TABLET (FP) PO ONE (22:12)
== END 2021-03-15 22:36 | disposition left against medical advice (07) ==
LOC: JER 21:01
DX: R50.9 Fever, unspecified (principal); R05.1 Acute cough
CPT/HCPCS: 99281-25

== ENCOUNTER 2022-09-20 15:51 | Emergency (ER) | payer OTHER ==
[2022-09-20 16:17] VITALS: RESP 20; BMI 27.4
[2022-09-20] MEDS ORDERED: KETOROLAC TROMETHAMINE 30 MG/1 ML VIAL IM ONE (16:55)
[2022-09-20] MEDS ORDERED: KETOROLAC TROMETHAMINE 30 MG/1 ML VIAL ONE (17:25)
[2022-09-20 18:13] LABS: EPI CELLS >36 /uL (0-25.1); HYALINE CASTS 1 /uL (0-3.1); PH,URINE 6.5 (5.0-8.0); URINE APPEARANCE CLEAR; URINE BACTERIA >9,000 /uL (0-1359); URINE BILIRUBIN NEGATIVE (NEGATIVE); URINE COLOR YELLOW; URINE GLUCOSE (UA) NEGATIVE (NEGATIVE); URINE KETONE TRACE (NEGATIVE); URINE LEUK ESTERASE TRACE (NEGATIVE); URINE NITRITE POSITIVE (NEGATIVE); URINE PROTEIN TRACE (NEGATIVE); URINE RBC 179 /uL (0-23.9); URINE WBC 61 /uL (0-25.8)
[2022-09-20] MEDS ORDERED: ALBUTEROL SO4 0.083% IH SOL 2.5 MG/3 ML VIAL.NEB. NEB ONE ×2 (19:01→19:28)
[2022-09-20 19:13] LABS: BASO % 0.3 % (0-2.0); EOS % 0.3 % (0-4.5); HEMATOCRIT 37.2 % (32.4-45.2); HEMOGLOBIN 12.5 GM/dL (10.7-15.3); LYMPH % 22.8 % (8-40); MCH 29.5 pg (25.7-33.7); MCHC 33.7 g/dl (32.0-36.0); MEAN CELL VOLUME 87.4 fl (80-96); MEAN PLT VOLUME 9.7 fl (7.5-11.1); MONO % 6.9 % (3.8-10.2); NEUT % 69.7 % (42.8-82.8); PLATELET COUNT 166 10^3/uL (134-434); RBC 4.25 M/mm3 (3.60-5.2); RDW 14.8 % (11.6-15.6); WHITE BLOOD COUNT 6.7 K/mm3 (4.0-10.0)
[2022-09-20 19:30] LABS: POTASSIUM 3.8 mmol/L (3.5-5.1)
[2022-09-20 19:33] LABS: CALCIUM 8.8 mg/dL (8.5-10.1)
[2022-09-20 19:34] LABS: ALBUMIN 3.3 g/dl (3.4-5.0); BLOOD UREA NITROGEN 11.7 mg/dL (7-18)
[2022-09-20 19:37] LABS: CREATININE 0.6 mg/dL (0.55-1.3)
[2022-09-20 19:38] LABS: BILIRUBIN,TOTAL 0.3 mg/dL (0.2-1); TOT PROT 6.6 g/dl (6.4-8.2)
[2022-09-20 19:51] VITALS: BP 116/70; PULSE 86; TEMP 98.9
[2022-09-20 19:59] LABS: ERYTHROCYTE SEDIMENTATION RATE 25 mm/hr (0-20)
== END 2022-09-20 20:01 | disposition home or self-care (01) ==
LOC: JERFT 15:51
PROC: 3E0233Z Introduction of Anti-inflammatory into Muscle, Percutaneous Approach (ICD-10-PCS; principal; 2022-09-20)
PROC: 3E0F7GC Introduction of Other Therapeutic Substance into Respiratory Tract, Via Natural or Artificial Opening (ICD-10-PCS; 2022-09-20)
DX: R50.9 Fever, unspecified (principal); R05.9 Cough, unspecified; B34.9 Viral infection, unspecified; M94.0 Chondrocostal junction syndrome [Tietze]; N10 Acute pyelonephritis; J20.9 Acute bronchitis, unspecified; Z20.822 Contact with and (suspected) exposure to COVID-19
CPT/HCPCS: 0241U-QW; 36415; 71046-TC-FY; 80053; 81003; 83605; 85025; 85651; 86140; 87040; 87086; 87186; 99284-25